=== PATIENT | male | born 1965 | race Caucasian/White ===

== ENCOUNTER 2022-12-20 10:44 | Emergency (ER) | payer MEDICAID, SELFPAY ==
[2022-12-20 11:09] VITALS: BP 149/104; PULSE 76; RESP 16; TEMP 36.7; O2SAT 96; BMI 21.0
--- NOTE | 2022-12-20 11:27 | ED.ABDPAIN ---
HPI - Abdominal Pain General Chief Complaint: Abdominal Pain Stated Complaint: Stomach and side pain Time Seen by Provider: 12/20/22 11:09 Source: patient Mode of arrival: ambulatory Limitations: no limitations History of Present Illness HPI narrative: 7-year-old male with a notable prior history of stroke 5 years ago presents to the emergency department with epigastric abdominal pain for 8 months. No specific changes that caused him to come to the emergency department now on a Wednesday morning. There has been no blood in his stools, no weight loss. He has not noted any jaundice. He denies alcohol usage. It is an achy discomfort that tends to happen during and after eating. There is no regurgitation. He did have 1 episode of vomiting 1 time last week but it sounds as though it was just upper stomach mucus. This happened after a cough it and it was nonbilious and of course nonbloody. He states that he is prone to constipation but certainly no blood in his stools. He has never had a colonoscopy or endoscopy. No prior history of pancreatitis or liver disease. No trauma or injury. He has tried taking some Tylenol and Tylenol p.m. which does temporarily help but does not relieve his symptoms completely. He has never tried a stomach acid medicine like Pepcid, omeprazole or something similar. Of note, we discussed his previous stroke it sounds like he had right-sided movement deficits but did regain almost complete function. He has not been doctor in 5 years but does have an upcoming PCP appointment to discuss the stomach issues in a couple of weeks. It sounds as though he was about whether he should still be taking aspirin, statin or blood pressure lowering medications following his stroke. It is quite clear that he is not taking those currently. Past medical history is notable for the stroke which affected the right side of his body, has regained complete function but is not on typical stroke prophylaxis medications now. He has been diagnosed with hypertension but is not prescribed medication mostly because he does not go to the doctor. He has had a prior cholecystectomy in 2008 which was uncomplicated, a wrist surgery of the right side for fracture which was also uncomplicated. He takes no long-term medications, has no allergies. Socially is a nonsmoker nondrinker. He does winter in [place]. Family history is negative for GI cancers he believes. ROS is notable for the GI symptoms as above only, otherwise denies times 12 systems. Related Data Previous Rx's Medication Instructions Recorded omeprazole 20 mg capsule,delayed 20 mg PO DAILY #60 caps 12/20/22 release Allergies Allergy/AdvReac Type Severity Reaction Status Date / Time No Known Drug Allergies Allergy Verified 12/20/22 11:13 [facility] Medical History (Updated 12/20/22 @ 12:53 by Caitlin Maharaj MD) Stroke Surgical History (Updated 12/20/22 @ 11:31 by Caitlin Maharaj MD) History of cholecystectomy History of surgery on wrist Social History Smoking Status: Never smoker Do you use any of these nicotine containing products: None Second hand tobacco smoke exposure: No How often do you have a drink containing alcohol: never AUDIT-C Alcohol total score: 0 Non-prescribed substance use: marijuana (any form) service: No Exam Const: Vital Signs, click to edit/add: Vital Signs - 24 hr 12/20/22 11:09 Temperature 98.1 F Pulse Rate [Left P ulse Oximeter] 76 Respiratory Rate 16 Blood Pressure [Le ft Upper Arm] 149/104 H Pulse Oximetry 96 Oxygen Delivery Me thod Room Air Documenting provider has reviewed patient's vital signs: yes Common normals: no apparent distress General appearance: cooperative, comfortable and well kempt HENMT: Common normals: normocephalic and head/scalp atraumatic Head and scalp: normocephalic and atraumatic Mouth: oral and palatal mucosa normal Throat: posterior oropharynx normal Eye: Common normals: EOMs intact bilaterally and conjunctivae normal General eye: normal appearance of both eyes Conjunctiva: conjunctiva(e) normal Neck & C-Spine: Common normals: full ROM and no lymphadenopathy Chest: Common normals: inspection of chest normal Resp: Common normals: normal respiratory effort, no use of accessory muscles and clear to auscultation bilaterally Effort & inspection: able to speak in complete sentences Auscultation: clear to auscultation bilaterally Cardio: Common normals: regular rate, regular rhythm, S1 normal heart sound, S2 normal heart sound, no murmurs and peripheral pulses 2+ throughout Rate: regular rate Rhythm: regular rhythm Heart sounds: S1 normal and S2 normal Peripheral pulses: pulses 2+ throughout GI: Common normals: Normal to inspection, nondistended, normoactive bowel sounds present, soft to palpation, no hepatosplenomegaly and no masses Palpation: soft and no hepatosplenomegaly Other: Mildly tender to epigastrium only. Extremity: Common normals: normal to inspection and normal capillary refill Neuro: Speech: speech normal Motor exam: strength 5/5 throughout, no tremor noted and no movement abnormalities noted Psych: Common normals: speech normal Appearance: well kempt Attitude: calm and engaged Activity/motor behavior: appropriate eye contact Speech: normal speech Insight: fair Judgement: judgment good Skin: Common normals: no rashes or lesions noted General skin exam: no rashes or lesions noted Course Vital Signs Vital signs: Initial Vital Signs Temperature 98.1 F 12/20/22 11:09 Temperature Source Temporal Artery Scan 12/20/22 11:09 Pulse Rate 76 12/20/22 11:09 Pulse Rhythm 12/20/22 11:09 Pulse Strength 3+ Normal 12/20/22 11:09 Respiratory Rate 16 12/20/22 11:09 Blood Pressure 149/104 H 12/20/22 11:09 Blood Pressure Mean 119 12/20/22 11:09 Blood Pressure Position Sitting 12/20/22 11:09 Pulse Oximetry 96 12/20/22 11:09 Oxygen Delivery Method 12/20/22 11:09 Vital Signs Temperature 98.1 F 12/20/22 11:09 Pulse Rate 76 12/20/22 11:09 Respiratory Rate 16 12/20/22 11:09 Blood Pressure 149/104 H 12/20/22 11:09 Pulse Oximetry 96 12/20/22 11:09 Oxygen Delivery Method 12/20/22 11:09 Temperature 98.1 F 12/20/22 11:09 Pulse Rate 76 12/20/22 11:09 Respiratory Rate 16 12/20/22 11:09 Blood Pressure 149/104 H 12/20/22 11:09 Pulse Oximetry 96 12/20/22 11:09 Oxygen Delivery Method 12/20/22 11:09 MDM - Abdominal Pain MDM Narrative Medical decision making narrative: 57-year-old male with 8 month history of epigastric pain. No worrisome features such as history of alcoholism, weight loss, jaundice or palpable Mass. Will give 20 mg of omeprazole, 1 g of Carafate an order routine labs. Patient would likely benefit from an endoscopy. Story is suspicious for hiatal hernia versus gastritis versus GERD. It also curious that he is not on typical appropriate preventative medication following a stroke. I will discuss this with him. It does look as though he would benefit from treatment of hypertension, statin therapy. Hesitant to start aspirin until we have a clear plan for management of his epigastric discomfort. Update: Patient is noticing some improvement with medications given. No severe symptoms. Differential diagnosis discussed. He will keep his follow-up with primary care, try to get in for a sooner appointment. He will be on omeprazole until his primary care appointment. I have recommended a referral for endoscopy. I also discussed that I do think he needs to be on medication for secondary prevention of stroke. Alarm symptoms reviewed. Dietary recommendations reviewed. Labs reviewed with patient. Lab Data Attestation: I reviewed the patient's lab results. Lab results narrative: Mildly elevated CRP only Labs: Lab Results 12/20/22 12/20/22 12/20/22 Range/Units 11:30 11:44 11:44 WBC 8.06 (4.50-11.00) K/uL RBC 4.47 (4.30-5.90) m/uL Hgb 12.9 L (13.5-17.5) gm/dL Hct 39.7 (37.0-53.0) % MCV 89 (80-100) fL MCH 29 (26-34) pg MCHC 33 (32-36) gm/dL RDW Coeff of Yadiel 12.5 (11.5-15.5) % Plt Count 375 (140-440) K/uL Neut % (Auto) 69.7 (42.0-72.0) % Lymph % (Auto) 20.7 (20-44) % [place] % (Auto) 6.7 (0.0-11.0) % Eos % (Auto) 2.5 (0.0-7.0) % Baso % (Auto) 0.2 (0.0-3.0) % Neut # (Auto) 5.61 (1.7-7.0) K/uL Lymph # (Auto) 1.67 (0.90-2.90) K/uL [place] # (Auto) 0.50 (0.00-0.90) K/UL Eos # (Auto) 0.20 (0.00-0.50) K/uL Baso # (Auto) 0.02 (0.00-0.30) K/uL Sodium 141 (135-149) mmol/L Potassium 4.1 (3.6-5.1) mmol/L Chloride 107 (96-114) mmol/L Carbon Dioxide 27 (20-32) mmol/L BUN 13 (7-30) mg/dL Creatinine 0.8 (0.5-1.5) mg/dL Estimated Creat Clear 83.95 Estimated GFR 103 ml/min Glucose 97 (60-115) mg/dL Calcium 9.0 (8.4-10.6) mg/dL Total Bilirubin 0.5 (0.1-1.5) mg/dL AST 25 (12-35) U/L ALT 27 (4-50) U/L Alkaline Phosphatase 60 (40-150) U/L C-Reactive Protein 4.3 H (0.5-1.0) mg/dL Total Protein 7.6 (6.0-8.3) g/dL Albumin 4.1 (3.3-5.0) g/dL Lipase 49 (23-300) U/L Urine Color Yellow (Yellow) Urine Appearance Clear (Clear) Urine pH 6.0 (5.0-8.5) Ur Specific Slaughter >= 1.030 (1.000-1.030) Urine Protein 1+ A (Negative) Urine Glucose (UA) Negative (Negative) Urine Ketones Trace A (Negative) Urine Blood Trace-intact A (Negative) Urine Nitrite Negative (Negative) Urine Bilirubin 1+ A (Negative) Urine Urobilinogen 0.2 (0.2-1.0) Ur Leukocyte Esterase Negative (Negative) Urine RBC 0-2 (0-2) Urine WBC 0-2 (0-5) Ur Squamous Epith Cells None (None-Few) Urine Bacteria None (None) Discharge Plan Discharge Clinical Impression: Hernia, hiatal Patient Disposition: Home, Self-Care Condition: Stable Instructions: Hiatal Hernia (DC) Additional Instructions: I suspect your symptoms are from a hiatal hernia or gastric reflux disease. These are both very common. As we discussed, the best test is an endoscopy, where a camera is placed through your mouth and esophagus to look at your stomach. This is best done after you have been on a stomach acid medicine for about 4 weeks. I am going to start you on a medicine called omeprazole. Take this 30 minutes before a meal each day. I would discontinue this unless you have been advised to do so by your primary care doctor or a GI specialist. Bring this paperwork with you when you follow-up with the primary care doctor. I would like for them to place the referral for the endoscopy. There were no signs of any emergent disease today. He or infection markers, liver, pancreatic enzymes, etc. are all normal. This is good news as expected. Try to avoid carbonated beverages, alcohol until after the endoscopy. As we discussed, eat small frequent meals. It is okay to take Tylenol but try to avoid NSAIDs like ibuprofen or Aleve as these tend to cause more stomach irritation. Please call [phone] to schedule a follow up appointment with a Primary Care Provider. Activity Level: No Restrictions Discharge Diet: Regular Prescriptions: New omeprazole 20 mg capsule,delayed release(DR/EC) 20 mg PO DAILY Qty: 60 0RF Rx Instructions: Once daily 30 minutes before a meal Stand Alone Forms: [employer] Info Instructions
[2022-12-20 11:51] LABS: Basophils Absolute Auto 0.02 K/uL (0.00-0.30); Basophils Percent Auto 0.2 % (0.0-3.0); Eosinophils Percent Auto 2.5 % (0.0-7.0); Hematocrit 39.7 % (37.0-53.0); Hemoglobin* 12.9 gm/dL (13.5-17.5); Immature Granulocytes Abs Auto 0.02 K/uL (0.00-0.30); Immature Granulocytes Pct Auto 0.2 %; Lymphocytes Absolute Auto 1.67 K/uL (0.90-2.90); Lymphocytes Percent Auto 20.7 % (20-44); Mean Corpuscular HGB Conc 33 gm/dL (32-36); Mean Corpuscular Hemoglobin 29 pg (26-34); Mean Corpuscular Volume 89 fL (80-100); Monocytes Percent Auto 6.7 % (0.0-11.0); Neutrophils Absolute Auto 5.61 K/uL (1.7-7.0); Neutrophils Percent Auto 69.7 % (42.0-72.0); Platelet Count* 375 K/uL (140-440); RDW Coefficient of Variation % 12.5 % (11.5-15.5); Red Blood Count 4.47 m/uL (4.30-5.90); White Blood Count* 8.06 K/uL (4.50-11.00)
[2022-12-20] MEDS: OMEPRAZOLE 20 MG CAPSULE DR PO (11:51)
[2022-12-20 11:52] LABS: Slide Review Reflex No
[2022-12-20] MEDS: SUCRALFATE 1 GM TABLET PO (11:52)
[2022-12-20 12:07] LABS: Appearance Urine Clear (Clear); Bilirubin Urine 1+ (Negative); Blood Urine Trace-intact (Negative); Color Urine Yellow (Yellow); Glucose Urine Negative (Negative); Ketones Urine Trace (Negative); Leukocyte Esterase Urine Negative (Negative); Nitrite Urine Negative (Negative); Protein Urine 1+ (Negative); Specific Gravity Urine >= 1.030 (1.000-1.030); Urobilinogen Urine 0.2 (0.2-1.0)
[2022-12-20 12:09] LABS: Albumin* 4.1 g/dL (3.3-5.0); Chloride* 107 mmol/L (96-114)
[2022-12-20 12:10] LABS: Potassium* 4.1 mmol/L (3.6-5.1); Sodium* 141 mmol/L (135-149)
[2022-12-20 12:12] LABS: Creatinine* 0.8 mg/dL (0.5-1.5); Est. Creatinine Clearance* 83.95; Estimated Glomerular Filt Rate 103 ml/min
[2022-12-20 12:13] LABS: Alanine Aminotransferase* 27 U/L (4-50); Alkaline Phosphatase* 60 U/L (40-150); Aspartate Amino Transferase* 25 U/L (12-35); Bilirubin Total* 0.5 mg/dL (0.1-1.5); Blood Urea Nitrogen* 13 mg/dL (7-30); Carbon Dioxide* 27 mmol/L (20-32); Glucose* 97 mg/dL (60-115); Lipase* 49 U/L (23-300); Total Protein* 7.6 g/dL (6.0-8.3)
[2022-12-20 12:15] LABS: C Reactive Protein* 4.3 mg/dL (0.5-1.0)
[2022-12-20 12:18] LABS: RBC Urine 0-2 (0-2); WBC Urine 0-2 (0-5)
== END 2022-12-20 12:59 | disposition home or self-care (01) ==
PROVIDERS: Emergency Provider Family Medicine
DX: R10.9 Unspecified abdominal pain (principal); K44.9 Diaphragmatic hernia without obstruction or gangrene
CPT/HCPCS: 36415; 80053; 81003; 81015; 83690; 85025; 86140; 99283; A9270

== ENCOUNTER 2023-01-05 16:49 | Outpatient (CLI) | payer MEDICAID, SELFPAY ==
[2023-01-06 08:33] LABS: Cholesterol* 274 mg/dL (90-199)
[2023-01-06 08:34] LABS: HDL Cholesterol* 63 mg/dL (>=40); LDL Cholesterol Calculated 182 mg/dL (<100); Triglycerides* 144 mg/dL (40-149)
[2023-01-06 09:06] LABS: PSA Screen* 0.79 ng/mL (0.10-4.00)
== END 2023-01-05 16:50 | disposition home or self-care (01) ==
PROVIDERS: PCP Internal Medicine; Visit Provider Internal Medicine
DX: Z00.00 Encounter for general adult medical examination without abnormal findings (principal); Z13.6 Encounter for screening for cardiovascular disorders; Z12.5 Encounter for screening for malignant neoplasm of prostate
CPT/HCPCS: 80061; 84153

== ENCOUNTER 2023-01-22 12:25 | Outpatient (CLI) | payer MEDICAID, SELFPAY | END 2023-01-22 12:26 | disposition home or self-care (01) | PROVIDERS: PCP Internal Medicine; Visit Provider Internal Medicine | DX: Z12.11 Encounter for screening for malignant neoplasm of colon (principal); K63.5 Polyp of colon; R13.10 Dysphagia, unspecified; K29.70 Gastritis, unspecified, without bleeding | CPT/HCPCS: 43239; 45380; 45385; 88305; J2250; J3010 ==

== ENCOUNTER 2024-06-20 18:08 | Outpatient (CLI) | payer OTHER, SELFPAY ==
--- OUTSIDE RECORDS SUMMARY | 2024-06-20 18:10 | XMS_ITS | Clinical Summary ---
Author Organization [facility] Address [place], [place] [address] Care Team Providers Care Zipper Setter Chainstitch Name Role Phone Femi Davis Primary Care Provider Mila vailable Allergies No known active allergies Medications Medication Sig Dispensed Refills Start Date End Date Status methadone (DOLOPHINE) 10 mg tabletIndications:Opi oid dependence with opioid-induced disorder (HC) Take 3 tablets by mouth once daily 90 tablet 11/26/2017 Active donepezil (ARICEPT) 10 mg tabletIndications:Aph neeta,Hemorrhagic stroke (HC) Take 1 tablet by mouth once daily. 30 tablet 11/27/2017 Active sennosides-docusate, 8.6-50 mg, (SENOKOT S) 8.6-50 mg tablet Take 1-4 tablets by mouth 2 times daily if needed for Constipation. 0 11/26/2017 Active Active Problems Problem Noted Date Diagnosed Date Hemiparesis of right dominan t side due to nontraumatic intracerebral hemorrhage 11/23/2017 Apraxia following nontraumatic intracerebral hem orrhage 11/23/2017 Dysphagia following nontraumatic intracerebral h emorrhage 11/23/2017 Opioid dependence with opioid-induced disorder 0 11/22/2017 Overview: On daily methadone Normocytic anemia 11/22/2017 Hemorrhagic stroke 11/21/2017 Right hemiparesis 11/21/2017 Aphasia 11/21/2017 Migraine without aura and wi thout status migrainosus, not intractable 02/18/2017 Nontraumatic subcortical hem orrhage of left cerebral hemisphere Tobacco abuse Immunizations Name Administration Dates Next Due Influenza, IIV4 11/25/2017 Family History Medical History Relation Name Comments Coronary artery disease Father Relation Name Status Comments Father Social History Tobacco Use Types Packs/Day Years Used Date Smoking Tobacco: Every Day Cigarettes 1.5 35 Smokeless Tobacco: Never Alcohol Use Standard Drinks/Week Comments No 0 (1 standard drink = 0.6 oz pur e alcohol) Sex and Gender Information Value Date Recorded Sex Assigned at Not on file Gender Identity Not on file Sexual Orientation Not on file Obstetrics History Last Filed Vital Signs Vital Sign Reading Time Taken Comments Blood Pressure 105/67 12/07/2017 2:31 PM [facility] [facility] Pulse 59 12/07/2017 2:31 PM [facility] Temperature 36.5 ??C (97.7 ??F) 11/27/2017 7:00 AM CS T Respiratory Rate 16 11/27/2017 7:00 AM [employer] [facility] Oxygen Saturation 94% 12/07/2017 2:31 PM [employer] Inhaled Oxygen Concentration - - Weight 53.4 kg (117 lb 12.8 oz) 11/24/2017 2:27 PM [facility] Height 167.6 cm (5' 6) 11/24/2017 2:27 PM [facility] Body Mass Index 19.01 11/24/2017 2:27 PM [employer] [employer] [facility] Plan of Treatment Health Maintenance Due Date Last Done Comments Tdap 1975 Depression screening for age 12+ 1976 HIV for age 15-65 1979 BMI (ht and wt on same day) for age 18+ 1982 Hepatitis C screening for ag e 18-79 1982 Tetanus booster 1984 Colonoscopy through age 75 2009 Lipids for age 45-75 2009 Zoster (shingles) series for age 50+ (1 of 2) 2014 COVID-19 vaccine series ( - 2022-24 season) 2023 Influenza for age 50-64 07/16/2024 11/25/2017 Pneumococcal series for age 6-64 Aged Out No longer eligible based on patient's age to complete this topic Advance Directives * Full Code (Latest Code Status on File) Date Activated Date Inactivated Comments 11/24/2017 3:01 PM 11/27/2017 1:53 PM Question Answer Comments Code Status Discussion: Per Existing Order * Full Code Date Activated Date Inactivated Comments 11/21/2017 7:37 PM 11/24/2017 3:01 PM Care Teams Zipper Setter Chainstitch Relationship Specialty Start Date End Date Femi Davis PCP - General Family Practice 11/24/17
== END 2024-06-20 18:09 | disposition home or self-care (01) ==
LOC: LKVREF 18:09
PROVIDERS: PCP Internal Medicine; Visit Provider Nurse Practitioner Family
DX: L08.9 Local infection of the skin and subcutaneous tissue, unspecified (principal)
CPT/HCPCS: 87070; 87186